=== PATIENT | female | born 1970 | race American Indian/Alaskan Native ===

== ENCOUNTER 2016-09-13 03:30 | Emergency (ER) | payer MEDICAID ==
[2016-09-13] MEDS ORDERED: Sodium Chloride 0.9% 1,000 ML IV ONE (04:38)
[2016-09-13 04:57] LABS: BASO # 0.1 K/uL (0.0-0.2); BASO % 0.4 % (0.0-2.0); EOS # 0.3 K/uL (0.0-0.7); EOS % 2.6 % (0.0-4.0); LYMPH # 1.4 K/uL (1.0-4.3); LYMPH % 11.8 % (20.0-40.0); MEAN CELL VOLUME 85.2 fL (81.0-99.0); MEAN CORPUSCULAR HEMOGLOBIN 27.5 pg (27.0-31.0); MEAN CORPUSCULAR HGB CONC 32.3 g/dL (33.0-37.0); MEAN PLATELET VOLUME 7.6 fL (7.2-11.7); MONO # 0.8 K/uL (0.0-0.8); MONO % 7.3 % (0.0-10.0); RED CELL DISTRIBUTION WIDTH 15.9 % (11.5-14.5); WHITE BLOOD COUNT 11.6 K/uL (4.8-10.8)
[2016-09-13] MEDS ORDERED: Sodium Chloride 0.9% 1,000 ML ONE (04:57)
[2016-09-13 05:01] LABS: INR 1.1
[2016-09-13 05:02] LABS: CHLORIDE 103 mmol/L (98-107); SODIUM 137 mmol/L (132-148)
[2016-09-13 05:04] LABS: BILIRUBIN,TOTAL 0.4 mg/dL (0.2-1.3); CARBON DIOXIDE 22 mmol/L (22-30); GFR AFRICAN-AMERICAN > 60
[2016-09-13 05:05] LABS: ALKALINE PHOSPHATASE 38 U/L (38-126); ALT/SGPT 11 U/L (9-52); AST/SGOT 33 U/L (14-36); BLOOD UREA NITROGEN 12 mg/dL (7-17); CALCIUM 7.7 mg/dl (8.6-10.4); GLUCOSE,RANDOM 96 mg/dL (65-105); TOTAL PROTEIN 6.2 g/dL (6.3-8.3)
[2016-09-13 05:10] LABS: POTASSIUM 4.4 mmol/L (3.6-5.2)
[2016-09-13 06:24] LABS: RBC URINE 3378 /hpf (0-3); URINE BILIRUBIN NEGATIVE (NEGATIVE); URINE BLOOD 3+ (NEGATIVE); URINE COLOR Amber (YELLOW); URINE GLUCOSE (UA) NORMAL (Normal); URINE KETONE NEGATIVE (NEGATIVE); URINE LEUKOCYTE ESTERASE 2+ Leu/uL (Negative); URINE PROTEIN 2+ mg/dL (NEGATIVE); URINE UROBILINOGEN NORMAL mg/dL (0.2-1.0); WBC URINE 1163 /hpf (0-5)
--- NOTE | 2016-09-13 06:26 | C.PDOC ---
Time Seen by Provider: 09/13/16 04:32 Chief Complaint (Nursing): Female Genitourinary History Per: Patient Onset/Duration Of Symptoms: Days (6) Current Symptoms Are (Timing): Still Present Severity: Moderate Quality Of Discomfort: Cramping Alleviating Factors: None Additional History Per: Prior Records Abnormal Vaginal Bleeding: Yes Past Medical History Reviewed: Historical Data, Nursing Documentation, Vital Signs Vital Signs: Last Vital Signs Temp 98.6 F 09/13/16 03:47 Pulse 70 09/13/16 03:47 Resp 16 09/13/16 03:47 BP 121/73 09/13/16 03:47 Pulse Ox 98 09/13/16 06:26 - Medical History PMH: Anemia Surgical History: No Surg Hx Family History: States: Unknown Family Hx - Social History Hx Alcohol Use: No Hx Substance Use: No - Immunization History Hx Tetanus Toxoid Vaccination: Yes Hx Influenza Vaccination: No Hx Pneumococcal Vaccination: No Review Of Systems Except As Marked, All Systems Reviewed And Found Negative. Constitutional: Negative for: Fever Cardiovascular: Negative for: Chest Pain Respiratory: Negative for: Shortness of Breath Gastrointestinal: Positive for: Abdominal Pain. Negative for: Vomiting, Diarrhea Genitourinary: Positive for: Vaginal Bleeding. Negative for: Dysuria Musculoskeletal: Negative for: Neck Pain, Back Pain Skin: Negative for: Rash Neurological: Negative for: Weakness, Numbness, Seizures, Altered Mental Status Physical Exam - Physical Exam Appears: Non-toxic, No Acute Distress Skin: Normal Color, Warm, Dry, No Rash Head: Atraumatic, Normacephalic Eye(s): bilateral: PERRL, EOMI Neck: Normal ROM, Supple Cardiovascular: Rhythm Regular Respiratory: Normal Breath Sounds, No Accessory Muscle Use Gastrointestinal/Abdominal: Soft, Tenderness, Mass (suprapubic, likely large fibroids) Back: No CVA Tenderness Extremity: Normal ROM Neurological/Psych: Oriented x3, Normal Motor, Normal Sensation ED Course And Treatment - Laboratory Results Result Diagrams: 09/13/16 04:50 09/13/16 04:50 Urine POC: Negative O2 Sat by Pulse Oximetry: 98 Pulse Ox Interpretation: Normal Disposition - Disposition Disposition Time: 07:00 Condition: STABLE - Clinical Impression Clinical Impression: Abnormal vaginal bleeding Physician Patient Turnover Patient Signed Over To: Cassius Mccracken Handoff Comments: to f/up pelvic US.
--- NOTE | 2016-09-13 09:29 | US ---
HISTORY: pain/bleeding COMPARISON: None available. TECHNIQUE: Transabdominal pelvic ultrasound FINDINGS: UTERUS: Measures 20.2 x 12.3 x 17.8 cm. Enlarged uterus with severely heterogeneous myometrium. Anteverted. Multiple fibroids noted. The largest measures approximately 9.4 x 6.8 x 7.1 centimeters. In the superior right aspect of the uterus there is a complex structure measuring 6 x 5.2 x 6 centimeters. Low echogenicity in the central aspect of this structure could be node necrosis. This could represent a necrotic fibroid. However, this remains suboptimally seen and evaluated. ENDOMETRIUM: The endometrial canal was not appreciated. CERVIX: Not clearly seen. RIGHT OVARY: Measures 2.5 x 2.3 x 2 cm. No solid mass. Normal flow. LEFT OVARY: Measures 4.7 x 2.4 x 3.8 cm. Partially septated cystic structure measuring 4.4 x 1.9 x 2.6 centimeters. FREE FLUID: No significant free fluid. OTHER FINDINGS: None. IMPRESSION: Enlarged uterus with multiple masses, likely fibroids. Possible necrotic complex fibroid in the superior right aspect of the uterus. Severely heterogeneous myometrium. Endometrial canal was not imaged. Other findings as above. Please note that this evaluation is predicated on negative status. Followup nonemergent evaluation of the uterus with MRI of pelvis with contrast (if there are no contraindications) should be obtained. Follow-up ultrasound for evaluation of the partially septated cystic structure in the left ovary can be obtained if indicated.
[2016-09-13 10:10] VITALS: BP 109/72; PULSE 76; RESP 17; TEMP 98.7; O2SAT 100
== END 2016-09-13 10:19 | disposition home or self-care (01) ==
LOC: C.ER 03:30
DX: N93.9 Abnormal uterine and vaginal bleeding, unspecified (principal)
CPT/HCPCS: 76856; 80053; 81001; 83690; 84703; 85025; 85610; 85730; 96374; 96375; 99285; J1885; J7040

== ENCOUNTER 2017-09-28 07:45 | Emergency (ER) | payer MEDICAID ==
[2017-09-28 08:01] VITALS: O2SAT 98
[2017-09-28] MEDS ORDERED: Lidocaine 5% Patch TD STA (08:18)
--- NOTE | 2017-09-28 08:18 | C.PDOC ---
History Of Present Illness 47 year old female presents to ED for evaluation of left lower back pain radiating down to left leg for the last 3 days. Patient states she is not sure what may have caused this pain, but notes that she has been sleeping differently for the past few days. Otherwise, denies fall, trauma, heavy lifting, fever, chills, dysuria, hematuria, bowel or bladder incontinence/ retention, or extremity weakness/numbness. (+) urinary frequency. Time Seen by Provider: 09/28/17 08:10 Chief Complaint (Nursing): Back Pain History Per: Patient History/Exam Limitations: no limitations Onset/Duration Of Symptoms: Days (3) Current Symptoms Are (Timing): Still Present Quality Of Discomfort: "Pain" Previous Symptoms: Back Pain. denies: Neck Pain, Prior Injury Associated Symptoms: None. denies: Incontinence, New Weakness, New Numbness Exacerbating Factor(s): Nothing Recent travel outside of the [place]: No Additional History Per: Patient Past Medical History Reviewed: Historical Data, Nursing Documentation, Vital Signs Vital Signs: Last Vital Signs Temp 99 F 09/28/17 07:52 Pulse 92 H 09/28/17 07:52 Resp 20 09/28/17 07:52 BP 134/80 09/28/17 07:52 Pulse Ox 98 09/28/17 08:36 - Medical History PMH: Anemia Other Surgeries: Hysterectomy in June Family History: States: Unknown Family Hx - Social History Hx Alcohol Use: No Hx Substance Use: No - Immunization History Hx Tetanus Toxoid Vaccination: Yes Hx Influenza Vaccination: No Hx Pneumococcal Vaccination: No Review Of Systems Except As Marked, All Systems Reviewed And Found Negative. Constitutional: Negative for: Fever, Chills Gastrointestinal: Negative for: Nausea, Vomiting, Abdominal Pain, Diarrhea Genitourinary: Positive for: Frequency. Negative for: Dysuria, Incontinence, Hematuria, Vaginal Discharge Musculoskeletal: Positive for: Back Pain (left lower), Leg Pain (leg) Neurological: Negative for: Weakness, Numbness Physical Exam - Physical Exam Appears: Non-toxic, Other (Uncomfortable) Skin: Normal Color, Warm, Dry Head: Atraumatic, Normacephalic Eye(s): bilateral: Normal Inspection Oral Mucosa: Moist Neck: Normal ROM, Supple Cardiovascular: Rhythm Regular, No Murmur Respiratory: Normal Breath Sounds, No Rales, No Rhonchi, No Wheezing Gastrointestinal/Abdominal: Soft, No Tenderness Back: No CVA Tenderness, No Vertebral Tenderness, Paraspinal Tenderness (left paralumbar) Extremity: Normal ROM, No Tenderness (no tenderness to left leg), Capillary Refill (less than 2 seconds), No Swelling Neurological/Psych: Oriented x3, Normal Speech, Normal Motor, Normal Sensation ED Course And Treatment O2 Sat by Pulse Oximetry: 98 (RA) Pulse Ox Interpretation: Normal Medical Decision Making Medical Decision Making: [facility] Reviewed: 09/13/2017 OXYCODONE HCL 30 MG TABLET 90 08/16/2017 OXYCODONE HCL 30 MG TABLET 90 07/10/2017 OXYCODONE HCL 30 MG TABLET 90 Plan: Urinalysis Lidoderm patch Toradol Valium Reassess Progress note: On reassessment, patient is resting comfortably, with improvement of back pain. Patient remains afebrile, with no bony tenderness, extremity numbness or weakness, or abdominal pain. Patient is ambulatory in the emergency department with no signs of discomfort. Patient was advised to follow up with physician/ clinic in 1-2 days. Disposition Counseled Patient/Family Regarding: Diagnosis, Need For Followup, Rx Given - Disposition Disposition: HOME/ ROUTINE Disposition Time: 09:34 Condition: IMPROVED Additional Instructions: Prescriptions sent to [facility] Apply heat to area for 15-20 minutes at a time 2-3 times per day Take Tylenol as needed for pain Take Motrin for pain every 6-8 hours as needed, with food to not upset stomach Take Flexeril for muscle pain and spasm every 6-8 hours as needed, caution can cause drowsiness Follow up with your primary medical doctor or clinic in 2-5 days for further evaluation Return to the emergency department at any time if symptoms persist or worsen. 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 - Scribe Statement The provider has reviewed the documentation as recorded by the Scribe Kripal Dick All medical record entries made by the Nino were at my direction and personally dictated by me. I have reviewed the chart and agree that the record accurately reflects my personal performance of the history, physical exam, medical decision making, and the department course for this patient. I have also personally directed, reviewed, and agree with the discharge instructions and disposition.
[2017-09-28] MEDS ORDERED: Lidocaine 5% Patch TD ONE (08:31)
[2017-09-28 09:25] LABS: SQUAMOUS EPITHIAL 8 /hpf (0-5); URINE BILIRUBIN NEGATIVE (NEGATIVE); URINE BLOOD 1+ (NEGATIVE); URINE CLARITY Hazy (Clear); URINE COLOR Yellow (YELLOW); URINE GLUCOSE (UA) NORMAL (Normal); URINE LEUKOCYTE ESTERASE NEG Leu/uL (Negative); URINE PROTEIN NEGATIVE (NEGATIVE)
[2017-09-28 09:46] VITALS: BP 130/84; PULSE 84; RESP 18; TEMP 98.9
== END 2017-09-28 09:46 | disposition home or self-care (01) ==
LOC: C.ER 07:45
DX: M54.5 Low back pain (principal)
CPT/HCPCS: 81001; 96372; 99284; J1885